=== PATIENT | female | born 1985 | race American Indian/Alaskan Native ===

== ENCOUNTER 2017-02-07 14:10 | Emergency (ER) | payer MEDICAID ==
[2017-02-07 15:25] LABS: Basophils % (Auto) 0.5 % (0.0-1.8); Eosinophils % (Auto) 0.5 % (0.0-4.3); Hematocrit 38.1 % (30.3-42.9); Hemoglobin 12.4 gm/dl (10.1-14.3); Mean Corpuscular HGB Conc 33 % (30-34); Mean Corpuscular Volume 78 fl (79-97); Platelet Count 311 K/mm3 (140-440); Red Blood Count 4.86 M/mm3 (3.65-5.03); Red Cell Distribution Width 14.9 % (13.2-15.2); White Blood Count 10.4 K/mm3 (4.5-11.0)
[2017-02-07 15:28] LABS: Bilirubin,Urine NEG (Negative); Blood,Urine NEG (Negative); Ketones,Urine NEG (Negative); Leukocyte Esterase,Urine NEG (Negative); Mucus,Urine 1+ /HPF; Nitrite,Urine NEG (Negative); Protein,Urine <15 mg/dL mg/dL (Negative); Urobilinogen,Urine < 2.0 mg/dL (<2.0); WBC,Urine < 1.0 /HPF (0.0-6.0)
[2017-02-07 15:35] LABS: Mean Corpuscular Hemoglobin 26 pg (28-32)
--- NOTE | 2017-02-07 17:08 | Ultrasound Report ---
FINAL REPORT PROCEDURE: US OB TRANSVAGINAL and transabdominal TECHNIQUE: Real-time transabdominal and transvaginal sonography of the uterus, placenta, amniotic fluid, adnexa, and fetus was performed with image documentation. Measurements were obtained to determine age/size. M-mode Doppler was used to document heartbeat. CPT 40319 and 38012 HISTORY: vaginal bleeding with COMPARISON: No prior studies are available for comparison. FINDINGS: ADDITIONAL GESTATION: None. CRL: 22 mm, which corresponds to a gestational age of: 8 weeks, 6 days. Yolk Sac: Normal. Embryonic Cardiac Activity: 176 beats per minute Gestational Sac: Crescentic hypoechoic area adjacent to the gestational sac is compatible with a subchorionic hemorrhage, measuring 3.6 x 0.8 x 0.7 centimeters Amniotic fluid: Normal. Cervix: Cervix measures approximately 4 centimeters in length Right Ovary: Normal. Left Ovary: Complex left ovarian cyst, measuring up to 2.6 centimeters Estimated delivery date: 09/13/2017 No free fluid IMPRESSION: 1. Single live intrauterine gestation at approximately 8 weeks, 6 days. 2. EDC by US 09/13/2017 3. Complete anatomic survey at 18-20 weeks suggested. 4. Small subchorionic hemorrhage is seen.
--- NOTE | 2017-02-07 17:11 | Ultrasound Report ---
FINAL REPORT PROCEDURE: US OB TRANSVAGINAL and transabdominal TECHNIQUE: Real-time transabdominal and transvaginal sonography of the uterus, placenta, amniotic fluid, adnexa, and fetus was performed with image documentation. Measurements were obtained to determine age/size. M-mode Doppler was used to document heartbeat. CPT 69977 and 04997 HISTORY: vaginal bleeding with COMPARISON: No prior studies are available for comparison. FINDINGS: ADDITIONAL GESTATION: None. CRL: 22 mm, which corresponds to a gestational age of: 8 weeks, 6 days. Yolk Sac: Normal. Embryonic Cardiac Activity: 176 beats per minute Gestational Sac: Crescentic hypoechoic area adjacent to the gestational sac is compatible with a subchorionic hemorrhage, measuring 3.6 x 0.8 x 0.7 centimeters Amniotic fluid: Normal. Cervix: Cervix measures approximately 4 centimeters in length Right Ovary: Normal. Left Ovary: Complex left ovarian cyst, measuring up to 2.6 centimeters Estimated delivery date: 09/13/2017 No free fluid IMPRESSION: 1. Single live intrauterine gestation at approximately 8 weeks, 6 days. 2. EDC by US 09/13/2017 3. Complete anatomic survey at 18-20 weeks suggested. 4. Small subchorionic hemorrhage is seen. PROCEDURE: TECHNIQUE: HISTORY: COMPARISON: FINDINGS: IMPRESSION:
[2017-02-07 20:02] VITALS: BP 106/60
[2017-02-07] MEDS ORDERED: SUBLIMAZE IV ONE ×2 (20:34→21:00)
[2017-02-07] MEDS ORDERED: NACL 0.9% 500 ML 500 ML IV ONE (20:34)
--- NOTE | 2017-02-07 20:39 | Emergency Department Report ---
HPI - General Chief Complaint: Vaginal Bleeding Time Seen by Provider: 02/07/17 20:18 - HPI HPI: This is a 31-year-old Afro-English female who presents to the emergency department with complaint of some vaginal bleeding/spotting that started earlier today and a positive home test. She says that she has gone through about 2-3 pads in 24 hours. She denies any significant abdominal pain. Her last Iam cycle was 11/27/16. She is about to go to [facility] on Thursday for her first appointment. She did not take anything for symptoms prior to presentation. With this she is with 2 live children. She denies any nausea, vomiting, fever, dysuria, vaginal discharge. She denies any past medical history. ED Past Medical Hx - Past Medical History Previous Medical History?: No Additional medical history: vaginal delivery x 2 - Surgical History Past Surgical History?: Yes Additional Surgical History: neck surgery due to a cervical strain - Social History Smoking Status: Never Smoker Substance Use Type: Non Opiate Pain - Medications Home Medications: Home Medications Medication Instructions Recorded Confirmed Last Taken Type Vit No.130/Iron/FA 1 each PO QDAY #30 tablet 02/07/17 Unknown Rx [ Tablet] ED Review of Systems ROS: Stated complaint: 10WKS PREG/SPOTTING Other details as noted in HPI Comment: All other systems reviewed and negative Constitutional: denies: chills, fever Eyes: denies: eye pain, eye discharge, vision change ENT: denies: ear pain, throat pain Respiratory: denies: cough, shortness of breath, wheezing Cardiovascular: denies: chest pain, palpitations Gastrointestinal: denies: abdominal pain, nausea, diarrhea Genitourinary: other (vaginal bleeding). denies: urgency, dysuria, discharge Musculoskeletal: denies: back pain, joint swelling, arthralgia Skin: denies: rash, lesions Neurological: denies: headache, weakness, paresthesias Physical Exam - Physical Exam Vital Signs: Vital Signs 02/07/17 02/07/17 14:52 20:01 Temperature 98.9 F Pulse Rate 92 H 75 Respiratory 20 16 Rate Blood Pressure 113/67 Blood Pressure 106/60 [Left] O2 Sat by Pulse 100 96 Oximetry Physical Exam: GENERAL: The patient is well-developed well-nourished. HEENT: Normocephalic. Atraumatic. Extraocular motions are intact. Patient has moist mucous membranes. Pupils equal reactive to light bilaterally. NECK: Supple. Trachea is midline. CHEST/LUNGS: Clear to auscultation. There is no respiratory distress noted. HEART/CARDIOVASCULAR: Regular. There is no tachycardia. There is no gallop rub or murmur. ABDOMEN: Abdomen is soft, nontender. Patient has normal bowel sounds. There is no abdominal distention. SKIN: Skin is warm and dry. NEURO: The patient is awake, alert, and oriented. The patient is cooperative. The patient has no focal neurologic deficits. The patient has normal speech. MUSCULOSKELETAL: There is no tenderness or deformity. There is no limitation range of motion. There is no evidence of acute injury. : Deferred ED Course Vital Signs 02/07/17 02/07/17 14:52 20:01 Temperature 98.9 F Pulse Rate 92 H 75 Respiratory 20 16 Rate Blood Pressure 113/67 Blood Pressure 106/60 [Left] O2 Sat by Pulse 100 96 Oximetry ED Medical Decision Making - Lab Data Result diagrams: 02/07/17 14:59 - Radiology Data Radiology results: report reviewed Transvaginal/ ultrasound shows a live intrauterine at about 8 weeks and 6 days. - Medical Decision Making 31-year-old female presents at with some vaginal spotting/bleeding for the past 24 hours. Ultrasound shows live intrauterine at about 8 weeks and 6 days. Patient is not in any distress. There is no significant anemia and the patient does not have a urinary tract infection. She has an appointment with her CHARTER COORDINATOR on Thursday. She'll be started on vitamins. She will return with any worsening of her symptoms or any acute distress. - Differential Diagnosis , threatened miscarriage, spontaneous miscarriage, fibroids, UTI Critical Care Time: No Critical care attestation.: If time is entered above; I have spent that time in minutes in the direct care of this critically ill patient, excluding procedure time. ED Disposition Clinical Impression: Threatened miscarriage Qualifiers: Weeks of gestation: 9 weeks Qualified Code(s): Z3A.09 - 9 weeks gestation of Disposition: DC-01 TO HOME OR SELFCARE Is pt being admited?: No Condition: Stable Instructions: (ED), Threatened Miscarriage (ED) Additional Instructions: Please follow-up with your CHARTER COORDINATOR on Thursday as previously planned. I have started you on vitamins. You can take Tylenol every 4 hours, using weight-based dosing, as needed for any fever or discomfort. Otherwise do not take any medications that are not prescribed by a physician. Return to the emergency department with any worsening of her vaginal bleeding, any sharp abdominal or pelvic pains, or any acute distress. Prescriptions: Vit No.130/Iron/FA [ Tablet] 1 each PO QDAY #30 tablet Referrals: PRIMARY CAREMD [Primary Care Provider] - [facility] Time of Disposition: 20:39
== END 2017-02-07 20:54 | disposition home or self-care (01) ==
LOC: ED 14:10
DX: O46.91 Antepartum hemorrhage, unspecified, first trimester (principal); O20.0 Threatened abortion; Z3A.09 9 weeks gestation of pregnancy
CPT/HCPCS: 36415; 76801; 76817; 81001; 84702; 85025; 86850; 86900; 86901